=== PATIENT | female | born 1960 | race Hispanic/Latino ===

== ENCOUNTER 2020-06-25 11:18 | Outpatient (CLI) | payer OTHER ==
--- NOTE | 2020-06-25 12:15 | XRay Report ---
ABDOMEN 1 VIEW(S) INDICATION / CLINICAL INFORMATION: CALCULUS OF KIDNEY N20.0. COMPARISON: None available. FINDINGS: TUBES / LINES: None. BOWEL GAS PATTERN: No significant abnormality. FREE AIR / EXTRALUMINAL GAS: None seen. ADDITIONAL FINDINGS: Numerous calcifications overlie the right and left renal is consistent with neph rolithiasis. The largest stone on the right measures 7 mm near mid pole. The largest stone on the lef t measures 2.5 cm near the superior pole. No obvious calcifications overlying the course of the urete rs. IMPRESSION: Bilateral nephrolithiasis as described. Consider further evaluation with CT stone protocol. Signer Name: Melquiades Slater Jr, MD Signed: 06/25/2020 12:11 PM Workstation Name: [id number]
== END 2020-06-25 11:19 | disposition home or self-care (01) ==
LOC: SPVIMAG 11:18
PROVIDERS: ATTEND Urology
DX: N20.0 Calculus of kidney (principal)
CPT/HCPCS: 74018

== ENCOUNTER 2020-07-30 08:44 | Outpatient (CLI) | payer OTHER ==
--- NOTE | 2020-07-30 09:28 | XRay Report ---
ABDOMEN AP SOME SUPINE [id number] INDICATION: CALCULUS OF KIDNEY N20.0 COMPARISON: 06/25/2020 FINDINGS: Bilateral nephrolithiasis is again seen with the large calculus in the upper pole the left kidney no longer present. A left ureteral stent has been inserted and appears to be in satisfactory p osition. Multiple tiny fragments are seen along the lower portion of the stent in the area of the dis toshia left ureter. Signer Name: Luis Angel Bowles MD Signed: 07/30/2020 9:23 AM Workstation Name: [id number]
== END 2020-07-30 08:45 | disposition home or self-care (01) ==
LOC: SPVIMAG 08:44
PROVIDERS: ATTEND Urology
DX: N20.0 Calculus of kidney (principal)
CPT/HCPCS: 74018